=== PATIENT | male | born 1960 | race Hispanic/Latino ===

== ENCOUNTER 2023-11-28 09:19 | Emergency (ER) | payer OTHER ==
[2023-11-28] MEDS ORDERED: Lidocaine 1% (PF) 30 ML VIAL ONE (09:31)
[2023-11-28] MEDS ORDERED: Boostrix 0.5 ML (Tdap) VIAL (>/=7 yrs of age) ONE (09:32)
[2023-11-28] MEDS ORDERED: Bacitracin 1 PK ONE (09:57)
== END 2023-11-28 10:05 | disposition home or self-care (01) ==
LOC: NAV ERS 09:19
DX: S81.012A Laceration without foreign body, left knee, initial encounter (principal); W29.3XXA Contact with powered garden and outdoor hand tools and machinery, initial encounter
CPT/HCPCS: 12002; 90471; 90715; J2001